=== PATIENT | female | born 1960 | race Caucasian/White ===

== ENCOUNTER → 2017-08-23 08:15 | Outpatient (CLI) | payer OTHER, SELFPAY ==
[2017-08-25 12:07] LABS: HPV HC, High Risk Positive (Negative)
== END ==
PROVIDERS: Family Provider Family Medicine; PCP Family Medicine; Visit Provider Family Medicine
DX: Z12.4 Encounter for screening for malignant neoplasm of cervix (principal)
CPT/HCPCS: 87624; 88175; G0145

== ENCOUNTER → 2017-11-01 09:02 | Outpatient (CLI) | payer OTHER, SELFPAY ==
[2017-11-01 12:24] LABS: Absolute Lymphocyte Count 1.89 X10^3/ul (0.83-4.51); Absolute Neutrophil Count 2.4 X10^3/uL (2.0-7.7); Basophil# 0.02 X10^3/uL; Basophil% 0.4 % (0-1); Eosinophil# 0.18 X10^3/uL; Eosinophils% 3.8 % (0-5); Hematocrit 43.4 % (37-47); Lymphocyte # 1.89 X10^3/ul (4.0); Lymphocyte % 39.7 % (19-41); Mean Corp Hgb Conc 32.3 g/gl (32-36); Mean Corpuscular Hgb 31.2 pg (27.0-32.0); Mean Corpuscular Volume 96.7 fL (81-99); Mean Platelet Vol. 9.6 fl (6.2-12.0); Monocyte# 0.26 X10^3/uL; Monocyte% 5.5 % (0-10); Neutrophil # 2.41 X10^3/uL (2.7-7.7); Neutrophil % 50.6 % (47-70); Platelet Count 336 K/mm3 (150-450); RBC Distribution Width CV 13.1 % (11.6-14.6); RBC Distribution Width SD 46.3 fl (35.1-43.9); Red Blood Count 4.49 M/mm3 (4.2-5.4); White Blood Count 4.8 K/mm3 (4.4-11.0)
[2017-11-01 12:36] LABS: POSITIVE COUNT NO; POSITIVE DIFFERENTIAL NO; POSITIVE MORPHOLOGY NO
[2017-11-01 12:40] LABS: ALB/GLOB Ratio 1.2 RATIO (0.9-2.4); AST(SGOT) 17 U/L (15-37); Alanine Aminotransfer ALT/SGPT 23 U/L (13-56); Alkaline Phosphatase 74 U/L (45-117); Anion Gap 8 (5-15); BUN 20 mg/dL (7-18); BUN/Creat Ratio 24.2 RATIO (10-20); Calcium,Total 10.3 mg/dL (8.5-10.1); Chloride 109 mmol/L (98-107); Cholesterol 231 mg/dL (200); Creatinine, Serum 0.82 mg/dL (0.55-1.02); EST Glomerular Filtration Rate 76 mL/min (>60); Est Glom Filt Rate - Afr Amer 92 mL/min (>60); Globulin 3.3 g/dL (2.2-4.2); Glucose 95 mg/dL (74-106); High Density Lipoprotein 58 mg/dL; Potassium 4.6 mmol/L (3.5-5.1); Protein, Total 7.3 g/dL (6.4-8.2); Sodium Level 144 mmol/L (136-145); Thyroid Stim Hormone (TSH) 0.76 uIU/mL (0.358-3.74); Triglycerides 151 mg/dL; Very Low Density Lipoprotein 30 mg/dL (5-40)
[2017-11-02 08:25] LABS: Progesterone Level 3.99 ng/mL (See Comment)
[2017-11-07 16:12] LABS: Testosterone, Free 0.27 ng/dL (0.10-0.85); Testosterone, Total 8 ng/dL (3-41)
[2017-11-09 11:52] LABS: Testosterone, % Free 3.33 % (0.50-2.80)
== END ==
PROVIDERS: Visit Provider Family Medicine
DX: F32.9 Major depressive disorder, single episode, unspecified (principal); N95.1 Menopausal and female climacteric states; E78.00 Pure hypercholesterolemia, unspecified
CPT/HCPCS: 36415; 80053; 80061; 84144; 84402; 84403; 84443; 85025

== ENCOUNTER → 2018-02-27 07:12 | Outpatient (CLI) | payer OTHER, SELFPAY ==
--- NOTE | 2018-02-27 07:16 | BI_ITS ---
MAMMOGRAPHY - BILATERAL SCREENING REASON FOR EXAM: Female, 57 years old. Routine annual screening examination. PERTINENT HISTORY: Aunt with breast cancer. TECHNIQUE: Digital bilateral breast ronn (3D mammographic acquisition) in the CC and MLO projections. 2-D mediolateral oblique (MLO) and craniocaudad (CC) views of both breasts were obtained. CAD: Full Field Digital Mammography with Computer Added Detection was performed. COMPARISON: Comparison is made with prior study dated February 07, 2017. FINDINGS: Breast Composition: The breasts are heterogeneously dense, which may obscure small masses. There are no dominant masses or suspicious calcifications. There is a 7.5 mm x 7.6 mm well-defined nodule in the upper slightly lateral aspect of the right breast. Correlation with ultrasound is recommended. No other significant abnormalities are identified. BI/SCREENING MAMM (CAD), BILAT IMPRESSION: 7.5 mm x 7.6 mm well-defined nodule in the upper slightly lateral aspect of the right breast as described. Correlation with ultrasound is recommended. ASSESSMENT CATEGORY: BIRADS Category 0: Incomplete. Need additional imaging evaluation. A letter regarding these results will be sent to the patient by the facility within 30 days. Approximately 10% of breast cancers are not detected by mammography. A normal mammogram should not delay biopsy of a clinically suspicious abnormality. [id number] Electronically Signed: Car Lopes MD at 9:47 EST Tel [phone], Service support ,
== END ==
PROVIDERS: Family Provider Family Medicine; PCP Family Medicine; Referring Provider Family Medicine; Visit Provider Family Medicine
DX: Z12.31 Encounter for screening mammogram for malignant neoplasm of breast (principal)
CPT/HCPCS: 77063; 77067

== ENCOUNTER → 2018-03-04 07:52 | Outpatient (CLI) | payer OTHER, SELFPAY ==
--- NOTE | 2018-03-04 07:56 | US_ITS ---
STUDY: ULTRASOUND BREAST - RIGHT REASON FOR EXAM: Female, 57 years old. Abnormal screening mammogram. TECHNIQUE: Axial and longitudinal images of the RIGHT breast were performed with a high resolution ultrasound transducer. COMPARISON: Comparison is made with prior mammogram dated February 27, 2018. FINDINGS: RIGHT Breast: There is a 4 mm x 4 mm x 4 mm cyst at the 12:00 position breast at 1 cm from nipple. There is also evidence of a 8 mm x 4 mm x 3 mm well-defined hypoechoic solid nodule at the 10:00 position of breast at 4 cm from the nipple. This may represent a small fibroadenoma. Tissue diagnosis is recommended. US/Breast Limited Unilateral IMPRESSION: 4 mm x 4 mm x 4 mm cyst at the 12:00 position of the breast at 1 cm from nipple. 8 mm x 4 mm x 2 mm well-defined hypoechoic solid nodule at the 10:00 position in the breast for some some nipple. Tissue diagnosis is recommended. ASSESSMENT CATEGORY: BIRADS Category 4: Suspicious - Biopsy Should Be Considered. A letter regarding these results will be sent to the patient by the facility within 30 days. Electronically Signed: Car Lopes MD at 14:23 EST Tel [phone], Service support ,
== END ==
PROVIDERS: Family Provider Family Medicine; PCP Family Medicine; Referring Provider Family Medicine; Visit Provider Family Medicine
DX: R92.8 Other abnormal and inconclusive findings on diagnostic imaging of breast (principal)
CPT/HCPCS: 76642

== ENCOUNTER → 2018-03-15 10:27 | Outpatient (CLI) | payer OTHER, SELFPAY ==
--- NOTE | 2018-03-15 10:28 | US_ITS ---
STUDY: ULTRASOUND BREAST - RIGHT REASON FOR EXAM: Female, 57 years old. Ultrasound guided biopsy of the nodular density at the 10:00 position in the breast at 4 cm from the nipple. TECHNIQUE: Axial and longitudinal images of the RIGHT breast were performed with a high resolution ultrasound transducer. COMPARISON: None. FINDINGS: RIGHT Breast: Under direct sonographic guidance, 4 core biopsies of the nodular density at the 10:00 position the breast at 4 cm from the nipple were performed. US/US Breast Biopsy 1st Lesion IMPRESSION: Ultrasound guided right breast biopsy. ASSESSMENT CATEGORY: BIRADS Category 4: Suspicious - Biopsy Should Be Considered. A letter regarding these results will be sent to the patient by the facility within 30 days. Electronically Signed: Car Lopes MD at 12:21 EST Tel [phone], Service support ,
--- NOTE | 2018-03-15 11:00 | LES_PTH ---
PATIENT: KIRBY PIERCE LOC: OPUS U#:[id number] AGE/SX: 64/F ROOM: RE03/15/[address]: Dr. Evgeny Haines MD : 1960 BED: DIS: SPEC #: [id number] RECD: 03/15/18 12:08 STATUS: MARY ELLEN SONIA #: [id number] SWATI: 03/15/18 11:[address]: Evgeny Haines DEPT: SURGICAL PATHOLOGY RECD BY: Kirt Shahid ENTERED: 03/15/18 12:32 SP TYPE: Lesion OTHR DR: Dr. Dulce Tena MD Tissues: Skin of breast, NOS Procedures: Surgery Specimen Level IV HEADER OPERATION: Ultrasound-guided right breast biopsy PRE-OP DIAGNOSIS: Right breast lesion TISSUE SUBMITTED: Right breast lesion ISCHEMIC TIME: 1 minute FIXATION TIME: 56.5 hours MICROSCOPIC DIAGNOSIS Right breast lesion, ultrasound-guided core biopsy: Fragments of hyalinized fibroadenoma. Negative for atypia or malignancy. SHELIA:jana 03/18/18 COMMENT Correlation with clinical, radiologic findings and appropriate follow up are necessary. MICROSCOPIC DESCRIPTION Slides are reviewed. GROSS DESCRIPTION Received is one container labeled with the patient's name and not further designated. The specimen consists of multiple elongated fragments of tavera-yellow fibroadipose tissue that in aggregate measure 2.5 x 0.5 x 0.1 cm. The entire specimen is submitted in one cassette. / SHELIA:jana 03/15/18 TC:1 CPT: 98017
--- NOTE | 2018-03-15 12:19 | NURSING ---
post us biopsy care, pressure held for 4 minutes no bleeding, swound cleaned off, skin prep applied, steri strips and telfa dressing, reviewed and pt voiced understanding of home care, reviewed s/s of infection.
--- NOTE | 2018-03-15 14:02 | PCM.OPRPT ---
Problem List (1) Abnormal mammogram of right breast Status: Acute Report of Operation Date of Procedure: 03/15/18 Pre-Operative Diagnosis: Abnormal mammogram to right breast Post-Operative Diagnosis: Same Surgery/Procedure Performed:: Ultrasound-guided handheld mammotome breast biopsy of abnormal mammogram to right breast Type of Anesthesia:: Local Description of Procedure: Patient was brought into the ultrasound suite. Placed on her left lateral side. Abnormality in the lateral aspect of her right breast was identified. I prepped the skin with chlorhexidine. I injected 1% lidocaine plain. Using a spinal needle I injected local posterior to the lesion. A skin emerald was made. Under ultrasound guidance the hand-held mammotome needle was placed directly underneath the lesion. Under ultrasound guidance numerous biopsies of this were obtained. I ablated it completely. Under ultrasound guidance a small titanium clip was placed. Steri-Strips were applied sterile dressings were applied and the patient tolerated the procedure well. - Admit VTE Documentation VTE Present on Admission: No VTE Mechan Device Prophylaxis: None VTE Pharm Prophylaxis ordered?: No Reason prophylaxis not ordered:: Treatment Not Indicated
--- OUTSIDE RECORDS SUMMARY | 2018-05-10 05:59 | XMS RPT_ITS ---
:1960 Author Organization [place] Support Name Relationship Address Phone KARISTANISLAV Unavailable [address] + [place] [address] [facility] Unavailable [address] + [place] [address] STANISLAV PIERCE Unavailable [address] + [place] [address] [facility] Unavailable [address] + [place] [address] STANISLAV PIERCE Unavailable [address] + [place] [address] [facility] Unavailable [address] + [place] [address] STANISLAV PIERCE Unavailable [address] + [address] [place] [address], [place] [address] [facility] Unavailable [address] + [place] [address] DEJA PIERCE Unavailable [address] + [place] [address] [facility] Unavailable [address] + [place] [address] DEJA PIERCE Unavailable [address] + [address] [place] [address] [facility] Unavailable [address] + [place] [address] DEJA PIERCE Unavailable [address] + [place] [address] [facility] Unavailable [address] + [place], [place] . DEJA PIERCE Unavailable [address] + [address] [place] [address] [facility] Unavailable [address] + [place] . PIERCE, DEJA Unavailable [address] + [address] [place] [address] [facility] Unavailable [address] + [place] . PIERCE, DEJA Unavailable [address] + [address] [place] [address], [place] [address] [facility] Unavailable [address] + [place], [place] . PIERCE, DEJA Unavailable [address] + [address] [place] [address], [place] [address] [facility] Unavailable [address] + [place] . KRAI, DEJA Unavailable [address] + [address] [place] [address] [facility] Unavailable [address] + [place] . PIERCE DEJA Unavailable [address] + [address] [place] [address], [place] [address] [facility] Unavailable [address] + [place] . Care Team Providers Name Role Phone Mallika Dulce Attending Unavailable Evgeny Haines Attending Unavailable Evgeny Haines Referring Unavailable Miedel, Dulce Primary Care Unavailable Evgeny Haines Attending Unavailable Evgeny Haines Referring Unavailable Miedel, Dulce Primary Care Unavailable Evgeny Haines Consulting Unavailable Evgeny Haines Attending Unavailable Miedel, Dulce Referring Unavailable Vilma Boyer D.C. Attending Unavailable Miedel, Dulce Referring Unavailable Miedel, Dulce Primary Care Unavailable Vilma Boyer D.C. Attending Unavailable DOCTOR, OUT OF TOWN Referring Unavailable Miedel, Dulce Attending Unavailable Miedel, Dulce Primary Care Unavailable Miedel, Dulce Attending Unavailable Miedel, Dulce Primary Care Unavailable Vilma Boyer D.C. Attending Unavailable DOCTOR, OUT OF TOWN Referring Unavailable BRENDA DOBBS Primary Care Unavailable Dossie, Vilma D.C. Attending Unavailable DOCTOR, OUT OF TOWN Referring Unavailable BRENDA DOBBS Primary Care Unavailable Miedel, Dulce Attending Unavailable Miedel, Dulce Referring Unavailable Miedel, Dulce Primary Care Unavailable Miedel, Dulce Attending Unavailable Miedel, Dulce Referring Unavailable Miedel, Dulce Primary Care Unavailable Evgeny Haines Attending Unavailable Miedel, Dulce Referring Unavailable PROBLEMS PROBLEMS DATE TYPE CONDITION / CODE ATTENDING STATUS SOURCE 03/15/2018 Unknown N63.10 - Evgeny Haines Active [facility] Unspecified lump in Community the right breast, Hospital unspecified Repository quadrant / N63.10(ICD-10) 11/01/2017 Unknown F32.9 - Major Miedel, Dulce Active [facility] depressive Community disorder, single Hospital episode, Repository unspecified / F32.9(ICD-10) 11/01/2017 Unknown E78.00 - Pure Miedel, Dulce Active [facility] hypercholesterolemi Community a, unspecified / Hospital E78.00(ICD-10) Repository 11/01/2017 Unknown N95.1 - Menopausal Miedel, Dulce Active [facility] and female Community climacteric states Hospital / N95.1(ICD-10) Repository 08/31/2017 Unknown M99.02 - Segmental Dossie, Vilma Active [facility] dysfunction of Hospital thoracic region / Repository M99.02(ICD-10) 08/31/2017 Unknown M99.05 - Segmental Dossie, Vilma Active [facility] Community dysfunction of Hospital pelvic region / Repository M99.05(ICD-10) 08/31/2017 Unknown M99.03 - Segmental Dossie, Vilma Active [facility] Community dysfunction of Hospital lumbar region / Repository M99.03(ICD-10) 08/31/2017 Unknown M99.01 - Segmental Dossie, Vilma Active [facility] Community dysfunction of Hospital cervical region / Repository M99.01(ICD-10) 08/23/2017 Unknown Z01.419 - Encounter Miedel Dulce Active [facility] for gynecological Community examination Hospital (general) (routine) Repository without abnormal findings / Z01.419(ICD-10) PROCEDURES PROCEDURES No Procedure Records FoundRESULTS RESULTS SURGERY VISIT REPORT Observed: 03/22/2018 Status: F Source: [place] 9:24 AM [facility] [address] [place] [address] OFFICE VISIT Date of Service: 03/20/18 MR#: [id number] Acct: [id number] Name: PURA PIERCE Rep #: [id number] : 1960 Provider: Evgeny Haines MD Age/Sex: 57/F Location: [facility] Status: Signed Intake Intake Visit Reasons: F/U R Breast BX 03/15 Chief Complaint: post breast biopsy Insulation Cutter Required: No Is patient in pain?: No Allergies No Known Allergies Allergy (Verified 03/20/18 15:26) Medications aspirin 81 mg tablet,delayed release PO 06/21/17 [History Confirmed 03/11/18] cholecalciferol (vitamin D3) 2,000 unit capsule 2,000 unit PO ONCE 06/21/17 [History Confirmed 03/11/18] escitalopram 10 mg tablet 10 mg PO QDAY 06/21/17 [History Confirmed 03/11/18] lactase 3,000 unit tablet 250 mg PO QAC 06/21/17 [History Confirmed 03/11/18] meloxicam submicronized 5 mg capsule 5 mg PO QAM 06/21/17 [History Confirmed 03/11/18] multivitamin tablet 1 tab PO QAM 06/21/17 [History Confirmed 03/11/18] biotin 2,500 mcg capsule 5,000 mcg PO QDAY cap 03/11/18 [History Confirmed 03/11/18] calcium carbonate 600 mg calcium (1,500 mg) tablet 600 mg PO BID tab 03/11/18 [History Confirmed 03/11/18] Is last menstrual period known: No Post menopausal: Yes Patient : No Subjective Details: Patient is status post an ultrasound-guided handheld mammotome breast biopsy of her right breast on 03/15/2018. This came back as fragments of a hyalinized fibroadenoma and was negative for malignancy. Patient does note moderate amount of discomfort particularly when she is doing stretching of her upper extremities she has not noticed any discharge from the biopsy site and she is noted moderate bruising Objective Details: Moderate bruising is identified there is no signs of cellulitis or infection Assessment AND Plan Problems 1. Fibroadenoma of right breast D24.1 Plan He will need to have her routine mammograms done. She can follow-up with me on an as-needed basis Plan Detail Goals Decrease pain and spasm Coding Level of Care Code Off vis,est,level 2 Diagnoses Fibroadenoma of right breast D24.1 03/22/18 0924 <Electronically signed by Evgeny Haines MD> Date Evgeny Haines MD Cosigner Signature: Date (if applicable) CC: Dulce Tena MD SURGERY VISIT REPORT Observed: 03/19/2018 Status: F Source: [place] 8:41 AM [facility] [address] [place] [address]. [address] [place] [address] OFFICE VISIT Date of Service: 03/11/18 MR#: [id number] Acct: [id number] Name: PURA PIERCE Rep #: [id number] : 1960 Provider: Evgeny Haines MD Age/Sex: 57/F Location: [facility] Status: Signed Intake Vital Signs03/19/18 Body Mass Index (BMI) 25.4 03/11/18 Height 5 ft 6 in Intake Visit Reasons: Rt Breast Consult [facility] 03/04 Chief Complaint: back pain Insulation Cutter Required: No Is patient in pain?: No Allergies No Known Allergies Allergy (Verified 03/11/18 14:54) Medications aspirin 81 mg tablet,delayed release PO 06/21/17 [History Confirmed 03/11/18] cholecalciferol (vitamin D3) 2,000 unit capsule 2,000 unit PO ONCE 06/21/17 [History Confirmed 03/11/18] escitalopram 10 mg tablet 10 mg PO QDAY 06/21/17 [History Confirmed 03/11/18] lactase 3,000 unit tablet 250 mg PO QAC 06/21/17 [History Confirmed 03/11/18] meloxicam submicronized 5 mg capsule 5 mg PO QAM 06/21/17 [History Confirmed 03/11/18] multivitamin tablet 1 tab PO QAM 06/21/17 [History Confirmed 03/11/18] biotin 2,500 mcg capsule 5,000 mcg PO QDAY cap 03/11/18 [History Confirmed 03/11/18] calcium carbonate 600 mg calcium (1,500 mg) tablet 600 mg PO BID tab 03/11/18 [History Confirmed 03/11/18] [facility] Medical History Arthritis (Acute) Carpal tunnel syndrome (Acute) Headaches, cluster (Acute) Hormone deficiency (Acute) IBS (irritable bowel syndrome) (Acute) Neuropathy (Acute) History of melanoma (Acute) Segmental and somatic dysfunction of thoracic region (Acute) Segmental and somatic dysfunction of pelvic region (Acute) Segmental and somatic dysfunction of lumbar region (Acute) Segmental and somatic dysfunction of cervical region (Acute) Surgical History history of bladder lift (Acute) history of uterine oblassion (Acute) Family History Other CAD (coronary artery disease) Myocardial infarction Social History Smoking Status: Never smoker alcohol intake: current alcohol intake frequency: 0-2 drinks per day substance use type: does not use what type of physical activity do you participate in: walking, aerobics frequency: 3-4 times per week HPI HPI HPI: PURA PIERCE, is a 57 F who presents to the office today for for evaluation of an abnormal ultrasound to her right breast. Recent had her mammograms and ultrasounds completed at [facility]. Ultrasound was completed on 03/04/2018. This showed a 8 mm x 4 mm x 2 mm nodule at the 10 o'clock position of the right breast and a biopsy was recommended. She has not noticed any changes in her exam she has had no hard palpable lesions on physical exam she has had no nipple discharge on physical exam ROS General General: No weight change, appetite, fatigue, colon cancer, breast cancer or weakness HEENT HEENT: No difficulty swallowing, eye injury, eye surgery, swollen glands or hoarseness Endo Endocrine: No thyroid disease, diabetes mellitus, thyroid cancer, Hair loss, heat intolerance or cold intolerance Skin Skin: No rash or changing moles Breast Breast: No left breast lump, right breast lump, nipple discharge, breast pain, abnormal mammogram, abnormal US or breast enlargement Musc Musculoskeletal: Yes arthritis; no back problems, rheumatoid arthritis, gout or joint pain Cardio Cardiovascular: No murmur, pacemaker, heart disease, atrial fibrillation, high blood pressure, heart attack, heart stent, palpitations, shortness of breat with exertion or chest pain Psych Psychiatric: Yes depression and anxiety; no hearing voices Resp Respiratory: No shortness of breath, No sleep apnea, No cough, No COPD, No asthma, No emphysema, No wheezing Gastro Gastrointestinal: Yes constipation, Yes hemorrhoids, No abdominal pain, No nausea or vomiting, No diarrhea, No blood in stool, No acid reflux, No ulcers, No gallbladder problem, No black,tarry stools Kalin Hematologic: No blood thinners, No blood disorders, No bleeding, No anemia, No blood clots Neuro Neurologic: No system reviewed and no additional complaints, except as docu, No as per HPI, No abnormal walking, No abnormal hearing, No abnormal movements, No abnormal speech, No behavioral changes, No burning sensations, No confusion, No seizure-like activity, No unsteadiness, No dizziness, No localized weakness, No frequent falls, No headache(s), No lack of coordination, No loss of vision, No memory loss, No numbness, No other visual disturbances, No radiating pain, No restless legs, No sensory deficit, No fainting, No tingling, No tremor(s), No weakness, No other Exam [facility] Head: normal to inspection, normocephalic, atraumatic Mouth: moist mucous membranes, oropharynx normal Eyes General: appearance normal, both eyes and all related structures Sclera: sclerae normal Neck Neck: no lymphadenopathy noted, trachea midline Neck mass: No Thyroid: thyroid normal Lymphatic: no lymphadenopathy noted Chest Breast inspection: normal inspection of the breasts Breast Palpation: No nipple discharge Other: No hard palpable lesions are identified on either the left or right side. Axillary exam is negative bilaterally. Supraclavicular exam is negative bilaterally Resp Other: Respiratory Exam: Deferred Cardio Heart Sounds: no murmurs Other: Cardiac Exam: Deferred GI Other: GI Exam: Deferred Other: Rectal Exam: Deferred Extrem Other: Extremity Exam: Deferred Assessment AND Plan Problems 1. Abnormal mammogram of right breast R92.8 Plan I have discussed above with the patient. I have recommended ultrasound guided needle core breast biopsy with vacuum assistance. I have described the procedure to the patient. I have discussed with the patient that sometimes the ultrasound lesion may be artifact and is user dependent and therefore prior to undergoing the procedure, the patient will have a definitive US to ensure that the lesion is truly present and is not artifact. A marker clip will be placed to identify the location. Patient has been counseled to the risks/benefits of the procedure. I have explained the risks of the surgery, including but not limited to: infection, bleeding, injury to any blood vessels/nerves, scar tissue, missing the lesion, further surgery, etc. - the patient understands and agrees to proceed. I have answered all of the patient's questions to her satisfaction and she has no further questions. Medications New: Plan Detail Goals Decrease pain and spasm Coding Level of Care Code Off vis,new,level 3 Diagnoses Abnormal mammogram of right breast R92.8 03/19/18 0841 <Electronically signed by Evgeny Haines MD> Date Evgeny Haines MD Cosigner Signature: Date (if applicable) CC: Dulce Tena MD OPERATIVE REPORT Observed: 03/15/2018 Status: F Source: [place] 2:05 PM [facility] RE[facility]ITORY [facility] Medical Records Department [address] [place] [address] Operative Report 03/15/18 1402 MR#: [id number] Acct: [id number] Name: PURA PIERCE Rep #: [id number] : 1960 57 From: Evgeny Haines MD PCP: Dulce Tena MD Status: REG CLI Y Location: [facility] Problem List (1) Abnormal mammogram of right breast Status: Acute Report of Operation Date of Procedure: 03/15/18 Pre-Operative Diagnosis: Abnormal mammogram to right breast Post-Operative Diagnosis: Same Surgery/Procedure Performed:: Ultrasound-guided handheld mammotome breast biopsy of abnormal mammogram to right breast Type of Anesthesia:: Local Description of Procedure: Patient was brought into the ultrasound suite. Placed on her left lateral side. Abnormality in the lateral aspect of her right breast was identified. I prepped the skin with chlorhexidine. I injected 1% lidocaine plain. Using a spinal needle I injected local posterior to the lesion. A skin emerald was made. Under ultrasound guidance the hand-held mammotome needle was placed directly underneath the lesion. Under ultrasound guidance numerous biopsies of this were obtained. I ablated it completely. Under ultrasound guidance a small titanium clip was placed. Steri-Strips were applied sterile dressings were applied and the patient tolerated the procedure well. - Admit VTE Documentation VTE Present on Admission: No VTE Mechan Device Prophylaxis: None VTE Pharm Prophylaxis ordered?: No Reason prophylaxis not ordered:: Treatment Not Indicated 03/15/18 1405 <Electronically signed by Evgeny Haines MD> Date Evgeny Haines MD CC: Evgeny Haines MD; Dulce Tena MD Signed LESION (CHOOSE SITE) Observed: 03/15/2018 Status: F Source: [place] 11:00 AM [facility] Patient: PURA PIERCE : 1960 (57/F) Acct Num: [id number] Phys: Yancy CASTILLO,Evgeny Unit Num: [id number] Loc: [facility] Specimen: [id number] Received: 03/15/18 - 1208 Spec Type: Lesion TISSUES 1 TISSUES: Skin of breast, NOS COMMENT Correlation with clinical, radiologic findings and appropriate follow up are necessary. GROSS DESCRIPTION Received is one container labeled with the patient's name and not further designated. The specimen consists of multiple elongated fragments of tavera-yellow fibroadipose tissue that in aggregate measure 2.5 x 0.5 x 0.1 cm. The entire specimen is submitted in one cassette. / SJ:jana 03/15/18 TC:1 CPT: 05031 HEADER OPERATION: Ultrasound-guided right breast biopsy PRE-OP DIAGNOSIS: Right breast lesion TISSUE SUBMITTED: Right breast lesion ISCHEMIC TIME: 1 minute FIXATION TIME: 56.5 hours MICROSCOPIC DESCRIPTION Slides are reviewed. MICROSCOPIC DIAGNOSIS Right breast lesion, ultrasound-guided core biopsy: Fragments of hyalinized fibroadenoma. Negative for atypia or malignancy. SJ:jana 03/18/18 Signed Zaki García 03/18/18 <signature on file> Performed By: #### PLES #### [facility] [address] [place] [address]. [place], [address] US BREAST BIOPSY Observed: 03/15/2018 Status: F Source: [place] 1ST [place] 10:28 AM [facility] Imaging Services [address] [place] [address] US Breast Biopsy 1st Lesion MR#: [id number] Acct: [id number] Name: PURA PIERCE Rep #: [id number] : 1960 F 57 From: Car Lopes MD PCP: Dulce Tena MD Status: REG CLI Study: US Breast Biopsy 1st Lesion Date of Exam: 03/15/18 Exam# [id number] Ordering Dr: Evgeny Haines MD STUDY: ULTRASOUND BREAST - RIGHT REASON FOR EXAM: Female, 57 years old. Ultrasound guided biopsy of the nodular density at the 10:00 position in the breast at 4 cm from the nipple. TECHNIQUE: Axial and longitudinal images of the RIGHT breast were performed with a high resolution ultrasound transducer. COMPARISON: None. FINDINGS: RIGHT Breast: Under direct sonographic guidance, 4 core biopsies of the nodular density at the 10:00 position the breast at 4 cm from the nipple were performed. US/US Breast Biopsy 1st Lesion IMPRESSION: Ultrasound guided right breast biopsy. ASSESSMENT CATEGORY: BIRADS Category 4: Suspicious - Biopsy Should Be Considered. A letter regarding these results will be sent to the patient by the facility within 30 days. Electronically Signed: Car Lopes MD at 12:21 EST Tel [phone], Service support , CC: Evgeny Haines MD; Dulce Tena MD Fur Tinter: Signed BREAST LIMITED Observed: 03/04/2018 Status: F Source: [place] UNILATERAL 7:56 AM [facility] Imaging Services [address] [place] [address] Breast Limited Unilateral MR#: [id number] Acct: [id number] Name: PURA PIERCE Rep #: [id number] : 1960 F 57 From: Car Lopes MD PCP: Dulce Tena MD Status: REG CLI Study: Breast Limited Unilateral Date of Exam: 03/04/18 Exam# [id number] Ordering Dr: Dulce Tena MD STUDY: ULTRASOUND BREAST - RIGHT REASON FOR EXAM: Female, 57 years old. Abnormal screening mammogram. TECHNIQUE: Axial and longitudinal images of the RIGHT breast were performed with a high resolution ultrasound transducer. COMPARISON: Comparison is made with prior mammogram dated February 27, 2018. FINDINGS: RIGHT Breast: There is a 4 mm x 4 mm x 4 mm cyst at the 12:00 position breast at 1 cm from nipple. There is also evidence of a 8 mm x 4 mm x 3 mm well-defined hypoechoic solid nodule at the 10:00 position of breast at 4 cm from the nipple. This may represent a small fibroadenoma. Tissue diagnosis is recommended. US/Breast Limited Unilateral IMPRESSION: 4 mm x 4 mm x 4 mm cyst at the 12:00 position of the breast at 1 cm from nipple. 8 mm x 4 mm x 2 mm well-defined hypoechoic solid nodule at the 10:00 position in the breast for some some nipple. Tissue diagnosis is recommended. ASSESSMENT CATEGORY: BIRADS Category 4: Suspicious - Biopsy Should Be Considered. A letter regarding these results will be sent to the patient by the facility within 30 days. Electronically Signed: Car Lopes MD at 14:23 EST Tel [phone], Service support , CC: Dulce Tena MD Fur Tinter: Signed SCREENING MAMM (CAD), Observed: 02/27/2018 Status: F Source: [facility] 7:16 AM [facility] Imaging Services [address] [place] [address] SCREENING MAMM (CAD), [facility] MR#: [id number] Acct: [id number] Name: PURA PIERCE Rep #: [id number] : 1960 F 57 From: Car Lopes MD PCP: Dulce Tena MD Status: REG CLI Study: SCREENING MAMM (CAD), BILAT Date of Exam: 02/27/18 Exam# [id number] Ordering Dr: Dulce Tena MD MAMMOGRAPHY - BILATERAL SCREENING REASON FOR EXAM: Female, 57 years old. Routine annual screening examination. PERTINENT HISTORY: Aunt with breast cancer. TECHNIQUE: Digital bilateral breast ronn (3D mammographic acquisition) in the CC and MLO projections. 2-D mediolateral oblique (MLO) and craniocaudad (CC) views of both breasts were obtained. CAD: Full Field Digital Mammography with Computer Added Detection was performed. COMPARISON: Comparison is made with prior study dated February 07, 2017. FINDINGS: Breast Composition: The breasts are heterogeneously dense, which may obscure small masses. There are no dominant masses or suspicious calcifications. There is a 7.5 mm x 7.6 mm well-defined nodule in the upper slightly lateral aspect of the right breast. Correlation with ultrasound is recommended. No other significant abnormalities are identified. BI/SCREENING MAMM (CAD), BILAT IMPRESSION: 7.5 mm x 7.6 mm well-defined nodule in the upper slightly lateral aspect of the right breast as described. Correlation with ultrasound is recommended. ASSESSMENT CATEGORY: BIRADS Category 0: Incomplete. Need additional imaging evaluation. A letter regarding these results will be sent to the patient by the facility within 30 days. Approximately 10% of breast cancers are not detected by mammography. A normal mammogram should not delay biopsy of a clinically suspicious abnormality. [id number] Electronically Signed: Car Lopes MD at 9:47 EST Tel [phone], Service support , CC: Dulce Tena MD Fur Tinter: Signed CBC W/DIFF, AUTOMATED Collected: 11/01/2017 Status: F Source: [place] 9:04 AM [facility] REPOS[facility] TYPE CODE TESTS RESULT OUT OF RANGE REFERENCE UNITS LAB L100.1000 4.4-11.0 K/mm3 Normal WBC 4.8 LAB L100.1200 4.2-5.4 M/mm3 Normal RBC 4.49 LAB L100.1300 12.0-15.0 g/dl Normal HGB 14.0 LAB L100.1400 37-47 % Normal HCT 43.4 LAB L100.1500 81-99 fL Normal MCV 96.7 LAB L100.1600 27.0-32.0 pg Normal MCH 31.2 LAB L100.1700 32-36 g/gl Normal MCHC 32.3 LAB L100.1810 11.6-14.6 % Normal RDW CV 13.1 LAB L100.1820 35.1-43.9 fl High RDW SD 46.3 LAB L100.1900 150-450 K/mm3 Normal PLT 336 LAB L100.2000 6.2-12.0 fl Normal MPV 9.6 LAB L100.2100 47-70 % Normal NEUT% 50.6 LAB L100.2200 19-41 % Normal LY% 39.7 LAB L100.2300 0-10 % Normal MONO% 5.5 LAB L100.2400 0-5 % Normal EO% 3.8 LAB L100.2500 0-1 % Normal BASO% 0.4 LAB L100.2550 0.0-0.9 % Normal IM GRAN % 0.000 Result Comment: IG% - Immature Granulocytes (promyelocytes, myelocytes and metamyelocytes) > 1% indicates that a LEFT SHIFT is Present. LAB L100.2620 2.0-7.7 X10 3/uL Normal Absolute Neut 2.4 LAB L100.2720 0.83-4.51 X10 3/ul Normal Absolute Lymph 1.89 Performed By: #### L100.0100 #### [facility] [address] [place], [address] COMPREHENSIVE METABOLIC Collected: 11/01/2017 Status: F Source: [facility] 9:04 AM [facility] REPOSITORY TYPE CODE TESTS RESULT OUT OF RANGE REFERENCE UNITS LAB L501.0100 74-106 mg/dL Normal GLU 95 Result Comment: Please note revised GLUCOSE reference range effective 2017. LAB L501.1000 7-18 mg/dL High BUN 20 LAB L501.1100 0.55-1.02 mg/dL Normal CREAT,SERUM 0.82 Result Comment: The validity of the calculated GFR AND GFRAA in patients over 70 years has not been determined. Clinical correlation is essential. LAB L501.1110 >60 mL/min Normal EST GFR 76 Result Comment: Non- GFR Calc LAB L501.1115 >60 mL/min Normal EST GFR - AA 92 Result Comment: GFR Calc LAB L501.1300 10-20 RATIO High BUN/CRE 24.2 LAB L501.1500 6.4-8.2 g/dL T Normal PROT 7.3 LAB L501.1800 3.2-5.0 g/dL Normal ALB 4.0 LAB L501.1950 2.2-4.2 g/dL Normal GLOB 3.3 LAB L501.2000 0.9-2.4 RATIO Normal A/G 1.2 LAB L501.2200 8.5-10.1 mg/dL High CA 10.3 LAB L501.4100 15-37 U/L Normal AST 17 LAB L501.4305 45-117 U/L Normal ALK P 74 LAB L501.4405 13-56 U/L Normal ALT 23 LAB L501.4600 0.20-1.00 mg/dL T Normal BILI 0.50 LAB L501.5300 136-145 mmol/L NA Normal 144 LAB L501.5600 3.5-5.1 mmol/L K Normal 4.6 LAB L501.5900 98-107 mmol/L High CL 109 LAB L501.6100 21.0-32.0 mmol/L Normal CO2 27.0 LAB L501.6200 5-15 Normal GAP 8 Performed By: #### L500.4050, L500.4100, L501.9520 #### [facility] [address] [place], [address] LIPID PROFILE Collected: 11/01/2017 Status: F Source: KEMP 9:04 AM [facility] REPOSITORY TYPE CODE TESTS RESULT OUT OF RANGE REFERENCE UNITS LAB L501.4900 200 mg/dL High CHOL 231 Result Comment: <200 mg/dL Desirable 200-240 mg/dL Borderline >240 mg/dL High Risk LAB L501.5000 mg/dL Normal TRIG 151 Result Comment: The drugs N-Acetylcysteine and Metamizole may falsely depress this assay. Serum Triglycerides Reference Interval Normal <150 mg/dL Borderline high 150 - 199 mg/dL High 200 - 499 mg/dL Very High > or = 500 mg/dL LAB L501.6400 mg/dL Normal HDL 58 Result Comment: The drugs N-Acetylcysteine and Metamizole may falsely depress this assay. Reference Range HDL <40 mg/dL Low HDL Cholesterol HDL >or= 60 mg/dL High HDL Cholesterol LAB L501.6500 0-130 mg/dL High LDL 143 LAB L501.6600 5-40 mg/dL Normal VLDL 30 Performed By: #### L500.4050, L500.4100, L501.9520 #### [facility] [address] [place], [place], [address] THYROID STIM HORMONE Collected: 11/01/2017 Status: F Source: FAISAL (TSH) 9:04 AM [facility] REPOSITORY TYPE CODE TESTS RESULT OUT OF RANGE REFERENCE UNITS LAB L501.9520 0.358-3.74 uIU/mL Normal TSH 0.76 Performed By: #### L500.4050, L500.4100, L501.9520 #### [facility] [address] [place], [place], [address] PROGESTERONE LEVEL Collected: 11/01/2017 Status: F Source: FAISAL 9:04 AM [facility] REPOSITORY TYPE CODE TESTS RESULT OUT OF REFERENCE UNITS RANGE LAB L509.4001 See Comment ng/mL Progesterone Normal 3.99 Result Comment: Progesterone Reference Table: UNITS Female: Follicular 0.15 - 1.40 ng/mL Luteal 3.34 - 25.56 ng/mL Mid-luteal 4.44 - 28.03 ng/mL Postmenopausal 0.0 - 0.73 ng/mL : 1st Trimester 11.22 - 90.00 ng/mL 2nd Trimester 25.55 - 89.40 ng/mL 3rd Trimester 48.40 -422.50 ng/mL Performed By: #### L509.4001 #### [facility] [address] [place], [place], [address] TESTOSTERONE, TOTAL / Collected: 11/01/2017 Status: F Source: FAISAL FREE 9:04 AM [facility] REPOSITORY Order Comment: Has Patient had X-rays with Contrast this admission? N TYPE CODE TESTS RESULT OUT OF RANGE REFERENCE UNITS LAB L3100.5320 3-41 ng/dL Normal TESTOSTER,TOTAL 8 LAB L3100.5340 0.10-0.85 ng/dL Normal TESTOSTER,FREE 0.27 LAB L3100.5360 0.50-2.80 % High TESTOSTER %FREE 3.33 Result Comment: Performed at: - [facility] [address] [place] [id number] Digital Content Marketing Manager: Kip Pleitez PhD, Phone: [phone] Performed at: - [facility] [address] [id number] Digital Content Marketing Manager: Duane Madsen MD, Phone: [phone] Performed By: #### L3100.5310 #### [facility] (refer to report for specific site) refer to report for address and phone number CHIROPRACTIC REPORT Observed: 09/03/2017 Status: F Source: KEMP 1:46 PM [facility] [address] [place] [address] OFFICE VISIT Date of Service: 08/30/17 MR#: [id number] Acct: [id number] Name: PURA PIERCE Rep #: [id number] : 1960 Provider: Vilma Cheung D.C. Age/Sex: 56/F [place] [facility]: Signed Intake Vital Signs08/30/17 Height 5 ft 6 in 08/30/17 Weight: 158 lb 08/30/17 Body Mass Index (BMI) 25.4 Intake Visit Reasons: Back pain Chief Complaint: neck and low back pain Is patient in pain?: Yes Allergies No Known Allergies Allergy (Unverified 06/21/17 17:18) Medications aspirin 81 mg tablet,delayed release PO 06/21/17 [History Confirmed 06/21/17] cholecalciferol (vitamin D3) 2,000 unit capsule 2,000 unit PO ONCE 06/21/17 [History Confirmed 06/21/17] escitalopram 10 mg tablet 10 mg PO QDAY 06/21/17 [History Confirmed 06/21/17] lactase 3,000 unit tablet 250 mg PO QAC 06/21/17 [History Confirmed 06/21/17] meloxicam submicronized 5 mg capsule 5 mg PO QAM 06/21/17 [History Confirmed 06/21/17] multivitamin tablet 1 tab PO QAM 06/21/17 [History Confirmed 06/21/17] progesterone micronized 100 mg capsule 100 mg PO QAM 06/21/17 [History Confirmed 06/21/17] testosterone 1 % (50 mg/5 gram) transdermal gel packet 50 mg TRANSDERMAL ONCE g 06/21/17 [History Confirmed 06/21/17] [facility] Medical History Arthritis (Acute) Carpal tunnel syndrome (Acute) Headaches, cluster (Acute) History of melanoma (Acute) Hormone deficiency (Acute) IBS (irritable bowel syndrome) (Acute) Neuropathy (Acute) history of bladder lift (Acute) history of uterine oblassion (Acute) Family History Other CAD (coronary artery disease) Myocardial infarction Social History Smoking Status: Never smoker alcohol intake: current alcohol intake frequency: 0-2 drinks per day substance use type: does not use what type of physical activity do you participate in: walking, aerobics frequency: 3-4 times per week HPI Back pain: Chief Complaint: back pain Visit Number: 3 Details: PURA PIERCE is a 56 year old F who presents with neck and low back pain. Pura states that with the added stress at work her pain has increased due to prolonged standing and tension. Today the patient rates her pain a 4/10 and describes it as tight and sharp with an ache that radiates into the shoulder blades. Pura also complains of a dull ache banding across the low back, she denies any numbness, tingling, or radiculopathy. Onset: 08/22/17 Location: neck and low back Duration: constant Aggravating or associated factors: stress and prlonged standing Pain Quality: aching, dull, sharp, radiating Exam Musc General: Yes normal posture, normal gait and joint tenderness (C2, C5, T1, T4,T7, T10, L3, L5) Cervical Spine: cervical lordosis not normal, loss of normal cervical lordosis (mild anterior head carriage), pain with cervical ROM with lateral flexion to left and with lateral flexion to right, cervical spasm, cervical ROM abnormal lateral flexion to the right decreased and lateral flexion to the left decreased Thoracic/Lumbar Spine: thoracic and lumbar spine normal to inspection, paraspinal tenderness on the left in the lower lumbar, pain with thoraco-lumbar ROM with forward flexion, thoraco-lumbar ROM limited with forward flexion, thoraco- lumbar spasm on the left greater than right Sacroiliac joints: on the left Office Procedures Chiropractic Treatments Procedures Manipulation: 3-4 regions (C2, C5, T1, T4,T7, T10, L3, L5) Electrical Stimulation: 15 mins Location: neck and low back pain Traction, Mechanical: Yes Details: Lumbar traction 15 min Assessment AND Plan 1. Acute bilateral low back pain without sciatica M54.5 2. Segmental and somatic dysfunction of thoracic region M99.02 Orders Orders: 3. Segmental and somatic dysfunction of pelvic region M99.05 Orders Orders: 4. Segmental and somatic dysfunction of lumbar region M99.03 Orders Orders: 5. Segmental and somatic dysfunction of cervical region M99.01 Orders Orders: Plan Detail Goals Decrease pain and spasm Follow Up PRN Coding Level of Care Code No Charge Diagnoses Acute bilateral low back pain without sciatica M54.5 Back pain location: low back pain Chronicity: acute Back pain laterality: bilateral Sciatica presence: without sciatica Segmental and somatic dysfunction of thoracic region M99.02 Segmental and somatic dysfunction of pelvic region M99.05 Segmental and somatic dysfunction of lumbar region M99.03 Segmental and somatic dysfunction of cervical region M99.01 Additional Codes Procedures - Electrical Stimulation: 15 mins (13233) Procedures - Traction, Mechanical: Yes (22111) Procedures - Manipulation: 3-4 regions (80091) 09/03/17 1346 <Electronically signed by Vilma Cheung D.C.> Date Vilma Cheung D.C. Cosigner Signature: Date (if applicable) CC: PAP I-G HPV HI Collected: 08/22/2017 Status: F Source: FAISAL RISK 5:00 PM [facility] REPOS[facility]ORY Order Comment: Specimen Comment: No. of containers..01 ThinPrep Vial TYPE CODE TESTS RESULT OUT OF RANGE REFERENCE UNITS LAB L7400.0800 . Normal DIAGN Comment Result Comment: NEGATIVE FOR INTRAEPITHELIAL LESION AND MALIGNANCY. CELLULAR CHANGES ASSOCIATED WITH ATROPHY ARE PRESENT. LAB L7400.0900 . Normal ADEQ Comment Result Comment: Satisfactory for evaluation. Endocervical component may not be distinguished in cases of atrophy. LAB L7400.1400 . Normal PERFORM Comment Result Comment: Hannah Frias, Welding [employer] (ASCP) LAB L7400.2575 . Normal TEST METHOD Comment Result Comment: This liquid based ThinPrep(R) pap test was screened with the use of an image guided system. LAB L7400.2600 . Normal . COMM LAB L7400.2700 . Normal PAPSMR Comment Result Comment: The Pap smear is a screening test designed to aid in the detection of premalignant and malignant conditions of the uterine cervix. It is not a diagnostic procedure and should not be used as the sole means of detecting cervical cancer. Both false-positive and false-negative reports do occur. LAB L7400.2950 Negative High HPV HC,HGH Positive RISK Result Comment: This high-risk HPV test detects thirteen high-risk types (16/18/31/33/35/39/45/51/52/56/58/59/68) without differentiation. Performed at: - [facility] [id number] Digital Content Marketing Manager: Alison Rosado MD, Phone: [phone] Performed at: = - [facility] [id number] Digital Content Marketing Manager: Alison Rosado MD, Phone: [phone] Performed By: #### L7400.0375 #### [facility] (refer to report for specific site) refer to report for address and phone number CHIROPRACTIC REPORT Observed: 07/09/2017 Status: F Source: KEMP 1:08 PM [facility] [address] [place] [address] OFFICE VISIT Date of Service: 07/05/17 MR#: [id number] Acct: [id number] Name: PURA PIERCE Rep #: [id number] : 1960 Provider: Vilma Cheung D.C. Age/Sex: 56/F [place] [facility] [place]: Signed Intake Vital Signs03/22/18 Height 5 ft 6 in 07/05/17 Weight: 158 lb 07/05/17 Body Mass Index (BMI) 25.4 Intake Visit Reasons: neck and back pain Chief Complaint: neck and bilateral hip pain Is patient in pain?: Yes Allergies No Known Allergies Allergy (Unverified 06/21/17 17:18) Medications aspirin 81 mg tablet,delayed release PO 06/21/17 [History Confirmed 06/21/17] cholecalciferol (vitamin D3) 2,000 unit capsule 2,000 unit PO ONCE 06/21/17 [History Confirmed 06/21/17] escitalopram 10 mg tablet 10 mg PO QDAY 06/21/17 [History Confirmed 06/21/17] lactase 3,000 unit tablet 250 mg PO QAC 06/21/17 [History Confirmed 06/21/17] meloxicam submicronized 5 mg capsule 5 mg PO QAM 06/21/17 [History Confirmed 06/21/17] multivitamin tablet 1 tab PO QAM 06/21/17 [History Confirmed 06/21/17] progesterone micronized 100 mg capsule 100 mg PO QAM 06/21/17 [History Confirmed 06/21/17] testosterone 1 % (50 mg/5 gram) transdermal gel packet 50 mg TRANSDERMAL ONCE g 06/21/17 [History Confirmed 06/21/17] [facility] Medical History Arthritis (Acute) Carpal tunnel syndrome (Acute) Headaches, cluster (Acute) History of melanoma (Acute) Hormone deficiency (Acute) IBS (irritable bowel syndrome) (Acute) Neuropathy (Acute) history of bladder lift (Acute) history of uterine oblassion (Acute) Family History Other CAD (coronary artery disease) Myocardial infarction Social History Smoking Status: Never smoker alcohol intake: current alcohol intake frequency: 0-2 drinks per day substance use type: does not use what type of physical activity do you participate in: walking, aerobics frequency: 3-4 times per week HPI neck and back pain : Chief Complaint: neck and low back pain Visit Number: 2 Details: PURA PIERCE is a 56 year old F who presents with neck and L hip pain. She states that she has had a headache for roughly 3 days stemming from the back of the neck. The patient also complains of L sided hip pain, overall Pura rates her pain a 6/10 and describes it as a deep sharp ache that is constant with a grinding and popping sensation in the hip. Her neck is tight and tender with a sharp pain causing a deep headache, although she denies any numbness, tingling, or pain into the leg. Location: neck and L hip Duration: constant Aggravating or associated factors: bending, reaching and pushing Pain Quality: aching, dull, sharp Exam Musc General: Yes normal posture, normal gait and joint tenderness (C2, C5, T1, T7, T10, L3, RIL, LIL) Cervical Spine: cervical lordosis not normal, loss of normal cervical lordosis (mild anterior head carriage), pain with cervical ROM with lateral flexion to left and with lateral flexion to right, cervical spasm, cervical ROM abnormal lateral flexion to the right decreased and lateral flexion to the left decreased Thoracic/Lumbar Spine: thoracic and lumbar spine normal to inspection, paraspinal tenderness on the left in the lower lumbar, pain with thoraco-lumbar ROM with forward flexion, thoraco-lumbar ROM limited with forward flexion, thoraco- lumbar spasm on the left greater than right Sacroiliac joints: on the left Office Procedures Chiropractic Treatments Procedures Manipulation: 3-4 regions (C2, C5, T1, T7, T10, L3, LIL) Electrical Stimulation: 15 mins Location: cervical and lumbar Traction, Mechanical: Yes Details: Traction: thor/lumb, 15min Assessment AND Plan Problems 1. Segmental and somatic dysfunction of cervical region M99.01 2. Segmental and somatic dysfunction of lumbar region M99.03 3. Segmental and somatic dysfunction of pelvic region M99.05 4. Segmental and somatic dysfunction of thoracic region M99.02 Plan Follow up PRN. Orders Orders: Plan Detail Goals Decrease pain and spasm Follow Up PRN Coding Level of Care Code No Charge Diagnoses Segmental and somatic dysfunction of cervical region M99.01 Segmental and somatic dysfunction of lumbar region M99.03 Segmental and somatic dysfunction of pelvic region M99.05 Segmental and somatic dysfunction of thoracic region M99.02 Additional Codes Procedures - Electrical Stimulation: 15 mins (90671) Procedures - Manipulation: 3-4 regions (97028) Procedures - Traction, Mechanical: Yes (51061) 07/09/17 1308 <Electronically signed by Vilma Cheung D.C.> Date Vilma Cheung D.C. Cosigner Signature: Date (if applicable) CC: CHIROPRACTIC REPORT Observed: 06/25/2017 Status: F Source: KEMP 4:28 PM [facility] [address] [place] [address] OFFICE VISIT Date of Service: 06/21/17 MR#: [id number] Acct: [id number] Name: PURA PIERCE Rep #: [id number] : 1960 Provider: Vilma Cheung D.C. Age/Sex: 56/F [place] [facility] [place]: Signed Intake Vital Signs06/21/17 Height 5 ft 6 in 06/21/17 Weight: 158 lb 06/21/17 Body Mass Index (BMI) 25.4 Intake Visit Reasons: neck and hip pain Is patient in pain?: Yes Allergies No Known Allergies Allergy (Unverified 06/21/17 17:18) Medications aspirin 81 mg tablet,delayed release PO 06/21/17 [History Confirmed 06/21/17] cholecalciferol (vitamin D3) 2,000 unit capsule 2,000 unit PO ONCE 06/21/17 [History Confirmed 06/21/17] escitalopram 10 mg tablet 10 mg PO QDAY 06/21/17 [History Confirmed 06/21/17] lactase 3,000 unit tablet 250 mg PO QAC 06/21/17 [History Confirmed 06/21/17] meloxicam submicronized 5 mg capsule 5 mg PO QAM 06/21/17 [History Confirmed 06/21/17] multivitamin tablet 1 tab PO QAM 06/21/17 [History Confirmed 06/21/17] progesterone micronized 100 mg capsule 100 mg PO QAM 06/21/17 [History Confirmed 03/08/18] testosterone 1 % (50 mg/5 gram) transdermal gel packet 50 mg TRANSDERMAL ONCE g 06/21/17 [History Confirmed 06/21/17] [facility] Medical History Arthritis (Acute) Carpal tunnel syndrome (Acute) Headaches, cluster (Acute) History of melanoma (Acute) Hormone deficiency (Acute) IBS (irritable bowel syndrome) (Acute) Neuropathy (Acute) history of bladder lift (Acute) history of uterine oblassion (Acute) Family History Other CAD (coronary artery disease) Myocardial infarction Social History Smoking Status: Never smoker alcohol intake: current alcohol intake frequency: 0-2 drinks per day substance use type: does not use what type of physical activity do you participate in: walking, aerobics frequency: 3-4 times per week HPI neck and hip pain : Chief Complaint: neck and bilateral hip pain Visit Number: 1 Referral source: sign in lobby Details: PURA PIERCE is a 56 year old F who presents with neck and bilateral hip pain. The patient states that she has been under chiro care previously and would like to find an office more convenient for her. She complains of neck pain that is described as a tight ache that increases with stress and working on the computer. Today she rates her pain a 4/10. The patient also complains of bilateral low back and hip pain , prolonged sitting and exercise makes it sore and achy, she denies any numbness, tingling, or radiculopathy. Pura has no previous injury to her neck or low back. Location: neck and hips pain Duration: intermittant Aggravating or associated factors: prolonged sitting, computer work and exercising Relieving factors: chiro Pain Quality: aching, dull Exam Musc General: Yes normal posture, normal gait and joint tenderness (C2, C5, T1, T7, T10, L3, RIL, LIL) Cervical Spine: cervical lordosis not normal, loss of normal cervical lordosis (mild anterior head carriage), pain with cervical ROM with lateral flexion to left and with lateral flexion to right, cervical spasm, cervical ROM abnormal lateral flexion to the right decreased and lateral flexion to the left decreased Thoracic/Lumbar Spine: thoracic and lumbar spine normal to inspection, paraspinal tenderness bilaterally (SI joints), pain with thoraco-lumbar ROM with forward flexion, thoraco-lumbar ROM limited with forward flexion, thoraco-lumbar spasm bilaterally (piriformis) Sacroiliac joints: bilaterally Neuro General: alert, awake, oriented x3, gait normal, normal light touch, pain and propioception, no focal motor deficits Ortho Test CERVICAL Compression pain: Negative Distraction pain: relief Tyrel's pain: Negative Valsalvas: Negative Shoulder depression pain: Right (bilateral) THORACIC Kemps: Negative : Negative LUMBAR Kemps: Positive (bilateral) Valsalvas: Negative SLR: Negative Iliac Compression: Positive Office Procedures Chiropractic Treatments Procedures Manipulation: 3-4 regions (C2, C5, T1, T7, T10, L3, RIL, LIL) Electrical Stimulation: 15 mins Traction, Mechanical: Yes Details: Traction: thor/lumb, 15min Assessment AND Plan Problems 1. Segmental and somatic dysfunction of cervical region M99.01 2. Segmental and somatic dysfunction of lumbar region M99.03 3. Segmental and somatic dysfunction of pelvic region M99.05 4. Segmental and somatic dysfunction of thoracic region M99.02 Plan Recommend a modified acute treatment plan. Follow up in 1 week and monitor response. Orders Orders: Plan Detail Goals Decrease pain and spasm Follow Up 1 Week Coding Level of Care Code Off vis,new,level 3 Diagnoses Segmental and somatic dysfunction of cervical region M99.01 Segmental and somatic dysfunction of lumbar region M99.03 Segmental and somatic dysfunction of pelvic region M99.05 Segmental and somatic dysfunction of thoracic region M99.02 Additional Codes Procedures - Manipulation: 3-4 regions (74153) Procedures - Electrical Stimulation: 15 mins (44545) Procedures - Traction, Mechanical: Yes (06679) 06/25/17 8292 <Electronically signed by Vilma Cheung D.C.> Date Vilma Cheung D.C. Cosigner Signature: Date (if applicable) CC: ALLERGIES ALLERGIES DATE TYPE / CODE NAME / CODE REACTION SEVERITY SOURCE 03/20/2018 Drug No Known Unknown [facility] All[facility]/4160 Allergies/F00 [facility] [address]1130(SNOMED 9825011(RXNOR Repository CT) M) ENCOUNTERS ENCOUNTERS ADMIT/DISCHARGE ACCOUNT ADMITTING ENCOUNTER LOCATION SOURCE NUMBER CLASS 03/20/2018/ [id number] Ambulatory [facility] 03/15/2018 [id number] Ambulatory [facility] 9 [facility] Rep[facility] 03/15/2018 [id number] Ambulatory [facility] 2 [facility] ing:OPUS Repository 03/11/2018/ [id number] Ambulatory BMS[facility] 3 [facility] 03/04/2018 [id number] Ambulatory Faisal [facility] 5 [facility] ing:OPUS Repository 02/27/2018 [id number] Ambulatory Faisal Faisal 5 [facility] ing:OPBI Repository 11/01/2017 [id number] Ambulatory Faisal Faisal 0 [facility] ing:BFHLAB Repository 08/30/2017/ [id number] Ambulatory BMSBuilding:B [facility] 8 3 [facility] Repository 08/23/2017 [id number] Ambulatory BMSBuilding:B [facility] 9 [facility] Repository 08/23/2017 [id number] Ambulatory Addison Addison 3 [facility] ing:BFHLAB Repository 08/23/2017 [id number] Ambulatory Faisal Faisal 3 [facility] ing:LAB.FUTUR Repository E 07/05/2017/ [id number] Ambulatory BMSBuilding:B [facility] 8 1 [facility] Repository 06/21/2017/ [id number] Ambulatory BMSBuilding:B [facility] 8 1 [facility] Repository PAYERS PAYERS ENCOUNTER GUARANTOR PAYER SUBSCRIBER SOURCE 03/20/2018 PURA [id number] Primary PURA HENDERSON: Faisal HERNANDEZ DRUNIT Insurance:[facility] [id number] [place] [address]Vqd: [phone]) Number: Repository [phone] ) [id number] Date:4944-87-57VX [address], [place] [address]PJ: 03/20/2018 Secondary NOT GIVENUNK [facility] Insurance:SELF PAY [facility] Number: Effective Repository Date:2018-03-15 03/15/2018 PURA [id number] Primary PURA L KARIDOB: Faisal MARY DRUNIT Insurance:[facility] [id number] [address]Tel: [phone]) Number: Repository [phone] () [id number] Date:[id number] [facility] [place], [place] [address]AF: 03/15/2018 Secondary NOT GIVENUNK Faisal Insurance:SELF PAY [facility] Number: Effective Repository Date:2018-03-15 03/15/2018 PURA [id number] Primary PURA L KAIRDOB: [facility] AMRY DRUNIT Insurance:[facility] [id number] [place] [address]Tel: [phone] Number: Repository [phone] () [id number] Date:[id number] [facility] [address], [place] [address]HC: 03/15/2018 Secondary NOT GIVENUNK Faisal Insurance:SELF PAY [facility] Number: Effective Repository Date:2018-03-11 03/11/2018 PURA PIERCE3574 Primary PURA L KARIDOB: [place] MARY DRUNIT Insurance:[facility] [id number] [place] [address]Tel: [phone]) Number: Repository [phone] () [id number] Date:4940-99-86MY [address], [place] [address]FG: 03/11/2018 Secondary NOT GIVENUNK Faisal Insurance:SELF PAY [facility] Number: Effective Repository Date:2018-03-11 03/04/2018 PURA PIERCE3574 Primary PURA L KARIDOB: [facility] MARY DRUNIT Insurance:[facility] [id number] [place] [address]Tel: [phone]) Number: Repository [phone] () [id number] Date:1423-99-14XU [facility] [address], [place] [address]VG: 03/04/2018 Secondary NOT GIVENUNK Faisal Insurance:SELF PAY [facility] Number: Effective Repository Date:2018-02-27 02/27/2018 PURA [id number] Primary PURA L KARIDOB: Faisal MARY DRUNIT Insurance:[facility] [id number] [place] [address]Tel: [phone] Number: Repository [phone] () [id number] Date:2125-76-25GW [facility] [place], [place] [address]LS: 02/27/2018 Secondary NOT GIVENUNK Addison Insurance:SELF PAY [facility] Number: Effective Repository Date:2018-01-28 11/01/2017 PURA [id number] Primary PURA STARKDOB: Faisal MARY DRUNIT Insurance:[facility] [id number] [place] [address]Tel: [phone] Number: Repository [phone] () [id number] Date:2219-58-37NU [facility] [place], [place] [address]OM: 11/01/2017 Secondary NOT GIVENUNK Faisal Insurance:SELF PAY [facility] Number: Effective Repository Date:2017-11-01 08/30/2017 PURA [id number] Primary PURA STARKDOB: Faisal MARY DRUNIT Insurance:[facility] [id number] [place], [place] [address]Tel: [phone] Number: Repository [phone] () [id number] Date:4154-90-57AD [address], [place] [address]OQ: 08/30/2017 Secondary NOT GIVENUNK Faisal Insurance:SELF PAY [facility] Number: Effective Repository Date:2017-08-30 08/23/2017 PURA [id number] Primary PURA STARKDOB: Addison MARY DRUNIT Insurance:[facility] [id number] [place]ille [address]Tel: [phone] Number: Repository [phone] () [id number] Date:7284-74-66BG [facility] [place]94[place], [place] [address]OY: 08/23/2017 Secondary NOT GIVENUNK Addison Insurance:SELF PAY [facility] Number: Effective Repository Date:2017-08-09 08/23/2017 PURA [id number] Primary PURA STARKDOB: Addison MARY DRUNIT Insurance:[facility] [id number] [place] [address]Tel: [phone] Number: Repository [phone] () [id number] Date:6320-36-25FK [facility] [place]238[place] [address]NI: 08/23/2017 Secondary NOT GIVENUNK Addison Insurance:SELF PAY [facility] Number: Effective Repository Date:2017-08-23 08/23/2017 PURA [id number] Primary PURA STARKDOB: Addison MARY DRUNIT Insurance:[facility] [id number] [place] [address]Tel: [phone] Number: Repository [phone] () [id number] Date:0308-09-15BG [address], [place] [address]SK: 08/23/2017 Secondary NOT GIVENUNK Faisal Insurance:SELF PAY [facility] Effective Repository Date:2017-08-23 07/05/2017 PURA [id number] Primary PURA KARIDOB: Faisal MARY DRUNIT Insurance:[facility] [id number] [place] [id number]: [phone] Number: Repository [phone] () [id number] Date:9404-87-25PG [facility] 160[place], [place] [address]DE: 07/05/2017 Secondary NOT GIVENUNK Addison Insurance:SELF PAY [facility] Number: Effective Repository Date:2017-07-05 06/21/2017 PURA [id number] Primary PURA KARIDOB: Addison MARY DRUNIT Insurance:[facility] [id number] V[place] [id number]: [phone] Number: Repository [phone] () [id number] Date:8744-37-89WE [address], [place] [address]JR: 06/21/2017 Secondary NOT GIVENUNK Addison Insurance:SELF PAY [facility] Number: Effective Repository Date:2017-05-23
== END ==
PROVIDERS: Family Provider Family Medicine; PCP Family Medicine; Referring Provider Surgery; Visit Provider Surgery
DX: D24.1 Benign neoplasm of right breast (principal)
CPT/HCPCS: 19083; 88305

== ENCOUNTER → 2019-11-28 17:57 | Outpatient (CLI) | payer OTHER, SELFPAY | PROVIDERS: PCP Family Medicine; Referring Provider Nurse Practitioner Primary Care; Visit Provider Nurse Practitioner Primary Care | DX: Z03.818 Encounter for observation for suspected exposure to other biological agents ruled out (principal) | CPT/HCPCS: 87635; 94799; U0003 ==